=== PATIENT | male | born 1985 | race Hispanic/Latino ===

== ENCOUNTER 2021-04-29 14:04 | Emergency (ER) | payer OTHER ==
--- OUTSIDE RECORDS SUMMARY | 2021-04-29 14:07 | XMS REPORT | Continuity of Care Document ---
:1985 Author Organization [facility] t Address [address] [place] [address] Dr. Bowers [address] [place] [id number] Care Team Providers Name Role Phone Unavailable Unavailable Unavailable Problems This patient has no known problems. Allergies, Adverse Reactions, Alerts This patient has no known allergies or adverse reactions. Medications This patient has no known medications. Procedures This patient has no known procedures. Results This patient has no known results.
--- NOTE | 2021-04-29 17:28 | RAD REPORT ---
EXAM DESCRIPTION: Blaise Single View04/29/2021 5:07 pm CLINICAL HISTORY: cough COMPARISON: 2016 FINDINGS: Mild bilateral pulmonary opacities. The heart is normal size IMPRESSION: Mild bilateral pulmonary opacities probably pneumonia
[2021-04-29] MEDS ORDERED: NA CHLORIDE 0.9% 1,000 ML ONE (19:43)
[2021-04-29 20:14] LABS: Absolute Lymphocytes (CBC) 2.1 K/uL (0.7-4.9); Basophils % 0.9 % (0-1.3); Hematocrit 47.9 % (39.6-49.0); Lymphocytes % 28.5 % (15.3-44.8); MPV 8.6 fL (7.6-11.3); RBC Red Blood Cell Count 5.48 M/uL (4.33-5.43)
[2021-04-29 20:48] LABS: BUN Blood Urea Nitrogen 13 mg/dL (7-18); Bicarbonate 27 mmol/L (21-32); Glucose Level 90 mg/dL (74-106); NT PRO-BNP 34 pg/mL (<125); Potassium 3.9 mmol/L (3.5-5.1); Sodium Level 140 mmol/L (136-145); Troponin (Emerg Dept Use Only) < 0.02 ng/mL (0.0-0.045)
[2021-04-29 20:49] LABS: C-Reactive Protein < 2.90 mg/L (<3.00)
--- NOTE | 2021-04-29 20:54 | RAD REPORT ---
EXAM DESCRIPTION: CT - Chest For Pe Angio - 04/29/2021 8:38 pm CLINICAL HISTORY: sob COMPARISON: April 29, 2021 chest x-ray TECHNIQUE: Dynamically enhanced axial 3 mm thick images of the chest were obtained during administra tion of <100> mL Isovue 370 IV contrast. Coronal and oblique reconstruction images were generated and reviewed. Exam utilizes a protocol for optimal evaluation of pulmonary arterial tree. Maximum intensity projections 3D imaging was utilized All CT scans are performed using dose optimization technique as appropriate and may include automated exposure control or mA/KV adjustment according to patient size. FINDINGS: A pulmonary embolus is not seen. A thoracic aortic aneurysm is not noted. A pleural effusion is not seen. A pericardial effusion is not seen. Mild bilateral patchy ground-glass opacities within the lungs IMPRESSION: Negative for a pulmonary embolism. Mild bilateral patchy ground-glass opacities within the lungs probably Covid pneumonia
--- NOTE | 2021-04-29 21:02 | EDPHYS ---
Physician Documentation [facility] [place], [place] Name: Willard Nolan Age: 35 yrs Sex: Male : 1985 Arrival Date: 04/29/2021 Time: 14:05 Bed Treatment Private MD: AMALIA Physician Axel Phillips HPI: 04/29 19:00 This 35 yrs old Male presents to ER via Ambulatory with complaints of cp Breathing Difficulty. 19:00 The patient has shortness of breath at rest. cp 19:00 Onset: The symptoms/episode began/occurred today. cp 19:00 Duration: The symptoms are continuous, but are steadily getting better. The patient's cp shortness of breath is aggravated by nothing, is alleviated by nothing. Associated signs and symptoms: Pertinent positives: non-productive cough, Pertinent negatives: chest pain, fever, syncope. Severity of symptoms: in the emergency department the symptoms have improved moderately. Patient reports being diagnosed with COVID-19 pneumonia 2 weeks ago. Historical: - Allergies: 15:10 Amoxicillin; aa5 - Home Meds: 15:10 None [Active]; aa5 - PMHx: 15:10 None; aa5 - PSHx: 15:10 None; aa5 - Immunization history:: Client reports receiving the 1st dose of the Covid vaccine. - Social history:: Smoking status: Patient denies any tobacco usage or history of. ROS: 19:05 Constitutional: Negative for body aches, chills, fever, poor PO intake. cp 19:05 Eyes: Negative for injury, pain, redness, and discharge. cp 19:05 ENT: Negative for ear pain, sore throat, difficulty swallowing, difficulty handling secretions. 19:05 Respiratory: Positive for shortness of breath, Negative for cough, wheezing. 19:05 Abdomen/GI: Negative for abdominal pain, nausea, vomiting, and diarrhea. Exam: 19:10 Constitutional: The patient appears in no acute distress, alert, awake, cp non-diaphoretic, non-toxic, well developed, well nourished. 19:10 Head/Face: Normocephalic, atraumatic. cp 19:10 Eyes: Periorbital structures: appear normal, Conjunctiva: normal, no exudate, no injection, Sclera: no appreciated abnormality, Lids and lashes: appear normal, bilaterally. 19:10 ENT: External ear(s): are unremarkable, Nose: is normal, Mouth: Lips: moist, Oral mucosa: moist, Posterior pharynx: Airway: no evidence of obstruction, patent. 19:10 Neck: ROM/movement: is normal, is supple, without pain, no range of motions limitations, no meningismus. 19:10 Chest/axilla: Inspection: normal, Palpation: is normal, no crepitus, no tenderness. 19:10 Cardiovascular: Rate: normal, Rhythm: regular, Edema: is not appreciated, JVD: is not appreciated. 19:10 Respiratory: the patient does not display signs of respiratory distress, Respirations: normal, no use of accessory muscles, no retractions, labored breathing, is not present, Breath sounds: bronchial sounds, that are mild, are heard diffusely, rhonchi, are not appreciated, stridor, is not appreciated, wheezing: is not appreciated. 19:10 Abdomen/GI: Inspection: abdomen appears normal, Palpation: abdomen is soft and non-tender, in all quadrants. 19:10 Neuro: Orientation: to person, place \T\ time. Mentation: is normal, Motor: moves all fours, strength is normal. 19:36 ECG was reviewed by the Attending Physician. Vital Signs: 15:09 BP 132 / 79; Pulse 89; Resp 18 S; Temp 98.0(TE); Pulse Ox 97% on R/A; Weight 88.45 kg aa5 (R); Height 5 ft. 10 in. (177.80 cm) (R); Pain 0/10; 20:03 BP 127 / 92; Pulse 81; Resp 16; Pulse Ox 99% on R/A; Pain 0/10; lp1 21:56 BP 119 / 78; Pulse 70; Resp 16; Pulse Ox 99% on R/A; Pain 0/10; lp1 15:09 Body Mass Index 27.98 (88.45 kg, 177.80 cm) aa5 MDM: 18:50 Patient medically screened. madi 20:00 Differential diagnosis: Myocardial Infarction pneumonia, Pneumothorax pulmonary edema, cp Pulmonary Embolism Sepsis Unstable Angina. 21:00 Data reviewed: vital signs, nurses notes, lab test result(s), EKG, radiologic studies, cp CT scan, plain films. 21:00 Test interpretation: by ED physician or midlevel provider: ECG, plain radiologic cp studies. Counseling: I had a detailed discussion with the patient and/or guardian regarding: the historical points, exam findings, and any diagnostic results supporting the discharge/admit diagnosis, lab results, radiology results, to return to the emergency department if symptoms worsen or persist or if there are any questions or concerns that arise at home. ED course: VSS. Patient reports symptoms improved. No signs of respiratory distress and patient appears non-toxic. Will discharge to home for continued monitoring. 04/29 19:04 Order name: CBC with Diff; Complete Time: 20:51 cp 04/29 20:51 Interpretation: Normal except: RBC 5.48. cp 04/29 19:04 Order name: BMP cp 04/29 19:04 Order name: Ferritin cp 04/29 19:04 Order name: CRP cp 04/29 20:52 Interpretation: Abnormal: C-REACTIVE PROT < 2.90. cp 04/29 19:04 Order name: BNP cp 04/29 19:04 Order name: Troponin (emerg Dept Use Only) cp 04/29 15:12 Order name: Chest Single View XRAY; Complete Time: 20:51 aa5 04/29 19:04 Order name: CT Chest For PE Angio; Complete Time: 20:56 cp 04/29 19:04 Order name: IV; Complete Time: 19:49 cp 04/29 19:04 Order name: EKG; Complete Time: 19:05 cp 04/29 19:04 Order name: EKG - Nurse/Tech; Complete Time: 19:33 cp EC:36 Rate is 83 beats/min. Rhythm is regular. OK interval is normal. QRS interval is normal. cp QT interval is normal. Interpreted by me. Reviewed by me. Administered Medications: 20:03 Drug: NS 0.9% 1000 ml Route: IV; Rate: 1 bolus; Site: right antecubital; lp1 21:57 Follow up: IV Status: Completed infusion; IV Intake: 1000ml lp1 Disposition Summary: 04/29/21 21:02 Discharge Ordered Location: Home cp Problem: new cp Symptoms: have improved cp Condition: Stable cp Diagnosis - Other viral pneumonia cp - SARS-associated coronavirus as the cause of diseases classified elsewhere cp Followup: cp - With: Private Physician - When: 2 - 3 days - Reason: Worsening of condition Discharge Instructions: - Discharge Summary Sheet cp - COVID-19 cp - Things to Know about the COVID-19 Pandemic - [facility] cp - 10 Things You Can Do to Manage Your COVID-19 Symptoms at Home - [facility] cp Forms: - Medication Reconciliation Form cp - Thank You Letter cp - Antibiotic Education cp - Prescription Opioid Use cp Prescriptions: - Prednisone 20 mg Oral Tablet - take 2 tablets by ORAL route once daily for 5 days; 10 tablet; Refills: 0, cp Product Selection Permitted Addendum: 05/01/2021 15:11 Co-signature as Attending Physician, Axel Phillips MD I agree with the assessment and c acevedo plan of care. Signatures: Dispatcher [employer] EDAxel Galicia MD MD cha Calderon, Audri RN RN aa5 Val Jasmine RN RN lp1 Axel Patel, PA PA cp Corrections: (The following items were deleted from the chart) 04/29 15:11 15:10 Allergies: No Known Allergies; aa5 aa5
--- NOTE | 2021-04-29 21:02 | ER ---
Nurse's Notes [facility] Name: Willard Nolan Age: 35 yrs Sex: Male : 1985 Arrival Date: 04/29/2021 Time: 14:05 Bed Treatment Private MD: Diagnosis: Other viral pneumonia;SARS-associated coronavirus as the cause of diseases classified elsewhere Presentation: 04/29 15:09 Chief complaint: Patient states: episode of SOB that lasted for 1 hr. Pt currently aa5 denies SOB. Pt reports he had COVID-19 Pneumonia x 2 weeks ago. Coronavirus screen: shortness of breath. Ebola Screen: Patient negative for fever greater than or equal to 101.5 degrees Fahrenheit, and additional compatible Ebola Virus Disease symptoms. Initial Sepsis Screen: Does the patient meet any 2 criteria? No. Patient's initial sepsis screen is negative. Does the patient have a suspected source of infection? No. Patient's initial sepsis screen is negative. Risk Assessment: Do you want to hurt yourself or someone else? Patient reports no desire to harm self or others. Onset of symptoms was April 29, 2021. 15:09 Method Of Arrival: Ambulatory aa5 15:09 Acuity: BARI 3 aa5 Historical: - Allergies: 15:10 Amoxicillin; aa5 - Home Meds: 15:10 None [Active]; aa5 - PMHx: 15:10 None; aa5 - PSHx: 15:10 None; aa5 - Immunization history:: Client reports receiving the 1st dose of the Covid vaccine. - Social history:: Smoking status: Patient denies any tobacco usage or history of. Screenin:04 Abuse screen: Denies threats or abuse. Denies injuries from another. Nutritional lp1 screening: No deficits noted. Tuberculosis screening: No symptoms or risk factors identified. Fall Risk None identified. Assessment: 20:04 General: Appears in no apparent distress. Behavior is calm, cooperative. Pain: Denies lp1 pain. Neuro: Level of Consciousness is awake, alert, obeys commands, Oriented to person, place, time, situation. Cardiovascular: Patient's skin is warm and dry. Respiratory: Reports shortness of breath on exertion Airway is patent Respiratory effort is even, unlabored, Respiratory pattern is regular, Breath sounds are clear bilaterally. Onset: The symptoms/episode began/occurred suddenly, the patient has mild shortness of breath. GI: No signs and/or symptoms were reported involving the gastrointestinal system. : No signs and/or symptoms were reported regarding the genitourinary system. EENT: No signs and/or symptoms were reported regarding the EENT system. Derm: Skin is pink, warm \T\ dry. Musculoskeletal: No deficits noted. 21:00 Reassessment: Patient appears in no apparent distress at this time. Patient is alert, lp1 oriented x 3, equal unlabored respirations, skin warm/dry/pink. Vital Signs: 15:09 BP 132 / 79; Pulse 89; Resp 18 S; Temp 98.0(TE); Pulse Ox 97% on R/A; Weight 88.45 kg aa5 (R); Height 5 ft. 10 in. (177.80 cm) (R); Pain 0/10; 20:03 BP 127 / 92; Pulse 81; Resp 16; Pulse Ox 99% on R/A; Pain 0/10; lp1 21:56 BP 119 / 78; Pulse 70; Resp 16; Pulse Ox 99% on R/A; Pain 0/10; lp1 15:09 Body Mass Index 27.98 (88.45 kg, 177.80 cm) aa5 ED Course: 14:05 Patient arrived in ED. as 15:09 Arm band placed on. aa5 15:10 Triage completed. aa5 17:07 Chest Single View XRAY In Process Unspecified. EDMS 18:48 Axel Patel PA is PHCP. cp 18:48 Axel Phillips MD is Attending Physician. cp 19:10 Val Jasmine, JOSHUA is Primary Nurse. lp1 19:49 Inserted saline lock: 20 gauge in right antecubital area, using aseptic technique. lp1 Blood collected. By AMALIA Hamilton. 20:04 Patient has correct armband on for positive identification. lp1 20:37 CT Chest For PE Angio In Process Unspecified. EDMS 21:56 No provider procedures requiring assistance completed. IV discontinued, No lp1 redness/swelling at site. Pressure dressing applied. Administered Medications: 20:03 Drug: NS 0.9% 1000 ml Route: IV; Rate: 1 bolus; Site: right antecubital; lp1 21:57 Follow up: IV Status: Completed infusion; IV Intake: 1000ml lp1 Intake: 21:57 IV: 1000ml; Total: 1000ml. lp1 Outcome: 21:02 Discharge ordered by . cp 21:56 Discharged to home ambulatory. lp1 21:56 Condition: good 21:56 Discharge instructions given to patient, Instructed on discharge instructions, follow up and referral plans. medication usage, Demonstrated understanding of instructions, follow-up care, medications, Prescriptions given X 1. 21:57 Patient left the ED. lp1 Signatures: Dispatcher [employer] Charley Tijerina Audri, RN RN aa5 Val Jasmine RN RN lp1 Axel Patel, PA PA cp Corrections: (The following items were deleted from the chart) 15:11 15:10 Allergies: No Known Allergies; aa5 aa5 20:05 20:04 Respiratory: Reports shortness of breath on exertion Airway is patent Respiratory lp1 effort is even, unlabored, Respiratory pattern is regular, Breath sounds are clear bilaterally. the patient has mild shortness of breath lp1
[2021-04-29 22:04] VITALS: TEMP 98
[2021-04-29 22:06] VITALS: O2SAT 99
[2021-04-29 22:08] VITALS: BP 119/78
[2021-04-30 00:05] LABS: Ferritin 355.7 ng/mL (26-388)
--- NOTE | 2021-05-01 16:59 | EKG ---
Test Date: 2021-04-29 Test Time: 19:31:55 [employer] Yard Worker: BRYN MEASUREMENT RESULTS: Intervals: Rate: 83 [place]: 174 QRSD: 74 QT: 386 QTc: 453 [place]: P: 62 [place]: 174 QRS: 18 T: 42 INTERPRETIVE STATEMENTS: Normal sinus rhythm Normal ECG Compared to ECG 11/18/2015 23:02:53 No significant changes Electronically Signed On 05-01-21 16:56:13 CDT by Jian Estrada
== END 2021-04-29 21:57 | disposition home or self-care (01) ==
LOC: ER 14:04
DX: U07.1 COVID-19 (principal); J12.81 Pneumonia due to SARS-associated coronavirus; Z88.1 Allergy status to other antibiotic agents
CPT/HCPCS: 96361; 93005; 85025; 80048; 36415; 84484; 82728; 83880; 86140; 71275; 71045; 96360; 99284; Q9967; J7030